=== PATIENT | female | born 1990 | race Caucasian/White ===

== ENCOUNTER 2017-03-27 09:11 | Emergency (ER) | payer MEDICAID ==
[2017-03-27] MEDS ORDERED: TETRACAINE HCL 0.5% OPH SOLN 2 ML OS ONE (10:26)
--- NOTE | 2017-03-27 10:29 | ER Document Report ---
ED Eye Complaint - General Chief Complaint: Eye Pain Stated Complaint: LEFT EYE INJURY Time Seen by Provider: 03/27/17 10:20 Notes: Patient is a 26-year-old female presents emergency department complaining of left eye pain. Her daughter put during my last evening. Admits to pain, minimal swelling, tearing and blurry vision. She is not a contact lens wear. Denies any other eye problems. Primary care physician is Dr. Thurston. TRAVEL OUTSIDE OF THE [place] IN LAST 30 DAYS: No - Related Data Allergies/Adverse Reactions: latex Allergy (Mild, Verified 03/27/17 09:15) rash Past Medical History - Social History Smoking Status: Smoker,Current Status Unk Family History: Reviewed & Not Pertinent Patient has suicidal ideation: No Patient has homicidal ideation: No Renal/ Medical History: Denies: Hx Peritoneal Dialysis - Immunizations Hx Diphtheria, Pertussis, Tetanus Vaccination: - 01/15/12 Hx Pneumococcal Vaccination: 01/15/12 Review of Systems - Review of Systems Constitutional: No symptoms reported EENT: See HPI -: Yes All other systems reviewed and negative Physical Exam - Vital signs Vitals: Temp Pulse Resp BP Pulse Ox 97.6 F 93 18 100/65 99 03/27/17 09:16 03/27/17 09:16 03/27/17 09:16 03/27/17 09:16 03/27/17 09:16 - HEENT Head: Normocephalic, Atraumatic Eyes: Tears Conjunctiva: Injected Cornea: Corneal abrasion Extraocular movements intact: Yes Eyelashes: Normal Pupils: PERRL Corrective lenses worn: No Lids everted for exam: left: Normal Anterior chamber: Normal Fundascopic: Normal Visual deras normal: Yes - Neurological Neuro grossly intact: Yes Course - Re-evaluation Re-evalutation: 03/27/17 11:26 26-year-old female with presentation corneal abrasion. Will discharge home with Polytrim drops and ketorolac drops for pain management. Patient to follow- up with ophthalmology next week. - Vital Signs Vital signs: Temp Pulse Resp BP Pulse Ox 97.6 F 93 17 100/65 99 03/27/17 09:16 03/27/17 09:16 03/27/17 10:55 03/27/17 09:16 03/27/17 09:16 Discharge - Discharge Clinical Impression: Corneal abrasion Condition: Good Disposition: HOME, SELF-CARE Instructions: Corneal Abrasion ([facility]) Prescriptions: Ketorolac Tromethamine [Acular Ls] 1 drop OS Q8HP PRN #5 ml PRN Reason: Polymyxin B Sulf/Trimethoprim [Polytrim Eye Drops] 1 drop OS Q3H #10 ml Forms: Special Work Note Referrals: LYN THURSTON MD [Primary Care Provider] - Follow up as needed BASSEM FIERRO MD [ACTIVE STAFF] - Follow up as needed (Opthamology: follow up if symptoms do not improve in 3 days)
[2017-03-27 12:44] VITALS: BP 106/72
== END 2017-03-27 12:44 | disposition home or self-care (01) ==
LOC: ER 09:11
DX: S05.02XA Injury of conjunctiva and corneal abrasion without foreign body, left eye, initial encounter (principal); W50.0XXA Accidental hit or strike by another person, initial encounter; Y93.89 Activity, other specified; H53.8 Other visual disturbances; H57.12 Ocular pain, left eye; Z91.040 Latex allergy status
CPT/HCPCS: 99283; J3490